=== PATIENT | male | born 1985 | race African-American/Black ===

== ENCOUNTER 2017-09-01 22:03 | Emergency (ER) | payer OTHER ==
[~2017-09-01] VITALS: Ht 175.3 cm; Wt 66.0 kg
[~2017-09-01 22:03] MED LIST: PERC5TAB12 PO
[2017-09-01 22:18] VITALS: BP 109/67; PULSE 59; RESP 18; TEMP 97.7; O2SAT 100
--- NOTE | 2017-09-01 22:56 | PD ---
HPI Chief Complaint: Laceration/Skin Injury Time Seen by Provider: 22:50 Travel History International Travel<30 days: No Contact w/Intl Traveler<30days: No Traveled to known affect area: No History of Present Illness HPI 32-year-old male presents for evaluation of a laceration to the lateral right thumb. It was sustained at work when he was lifting a bag and a piece of glass cut his finger. He has some minor pain at the site of laceration with associated bleeding. Denies any numbness or tingling or weakness, last tetanus vaccination unknown. No other complaints. [facility] Past Medical History Medical History: Denies Significant Hx Tetanus Vaccination: Unknown Past Surgical History Surgical History: No Previous Surgery Social History Alcohol Use: No Tobacco Use: Yes Substance Use: No Allergies-Medications (Allergen,Severity, Reaction): Coded Allergies: No Known Allergies (Verified , 08/27/14) Reported Meds & Prescriptions Reported Meds & Active Scripts Active No Active Prescriptions or Reported Medications Review of Systems Musculoskeletal: Positive: Pain Skin: Positive Other (Laceration, bleeding) Neurologic: No: Paresthesia Physical Exam Narrative GENERAL: Well-nourished male in no acute distress SKIN: Warm and dry. 1 cm lacerations of the lateral aspect of the right thumb. MUSCULOSKELETAL: No obvious deformities. No clubbing. No cyanosis. No edema. Skin as noted above. Distal sensation, capillary refill intact. Full range of motion right thumb. Data Data Last Documented VS Vital Signs Date Time Temp Pulse Resp B/P (MAP) Pulse Ox O2 Delivery O2 Flow Rate FiO2 09/01/17 22:18 97.7 59 18 109/67 (81) 100 Orders Orders Tetanus/Diphtheria Tox Adult (Tetanus/Di (09/01/17 23:00) Lidocaine 1% Inj (Xylocaine 1% Inj) (09/01/17 23:00) Finger (Sle3lra) (09/01/17 ) Splint Or Brace Apply/Monitor (09/01/17 23:51) Ed Discharge Order (09/02/17 00:16) MDM Medical Decision Making Medical Screen Exam Complete: Yes Emergency Medical Condition: Yes Medical Record Reviewed: Yes Differential Diagnosis Laceration, open fracture, foreign body Narrative Course Tetanus status updated, x-ray ordered, laceration repaired with sutures, he verbally consents. X-ray imaging reveals no acute abnormality's. The patient will be discharged with [facility] finger splint. Procedures Procedure Narrative LACERATION LOCATION: Right thumb LENGTH: 1 cm NUMBER OF STITCHES/ARTHUR: 3 REPAIR: The area of the laceration was prepped with Betadine and sterilely draped. The laceration was infiltrated with 1% lidocaine. The wound was copiously irrigated and explored without evidence of foreign body, tendon injury or neurovascular injury. The wound was closed using 5-0 nylon simple interrupted this was a single layer repair. A sterile dressing was applied. The patient was advised to keep the dressing clean and dry. Patient tolerated the procedure well. Diagnosis Primary Impression: Finger laceration Additional Instructions: Wash the wound daily with soap and water and apply antibiotic cream. Minimize use of right thumb to prevent wound dehiscence, use the finger splint in this endeavor. Return in approximately 14 days for suture removal. Med/Other Pt SpecificInfo: Wound Care, Orthopedic Instructions Scripts No Active Prescriptions or Reported Meds Disposition: 01 DISCHARGE HOME Condition: Stable Juan Alexander Sep 01, 2017 22:56
[2017-09-01] MEDS ORDERED: TETANUS/DIPHTHERIA TOXOID ADULT 0.5 ML VIAL IM ONE (23:00)
[2017-09-01] MEDS ORDERED: LIDOCAINE HCL 1% 30 ML VIAL INFIL ONE (23:00)
--- NOTE | 2017-09-01 23:54 | RADRPT ---
EXAM DATE/TIME: 09/01/2017 23:08 [facility] COMPARISON: No previous studies available for comparison. INDICATIONS : Laceration to anterior portion of palm at 1st finger. MEDICAL HISTORY : None. SURGICAL HISTORY : None. ENCOUNTER: Initial ACUITY: 1 day PAIN SCORE: 4/10 LOCATION: Right thumb FINDINGS: Examination of the first digit of the right hand demonstrates no evidence of fracture or dislocation. No radiopaque foreign bodies are seen. The soft tissues are intact. No radiopaque foreign bodies. CONCLUSION: The osseous structures of the 1st digit are intact. Brayan Mancia MD on September 01, 2017 at 23:52 Board Certified Radiologist. This report was verified electronically.
== END 2017-09-02 00:46 | disposition home or self-care (01) ==
LOC: NEPD 22:03
DX: S61.011A Laceration without foreign body of right thumb without damage to nail, initial encounter (principal); W25.XXXA Contact with sharp glass, initial encounter; Y93.89 Activity, other specified; Z23 Encounter for immunization
CPT/HCPCS: 12001; 73140; 90471; 90714

== ENCOUNTER 2017-09-22 00:24 | Emergency (ER) | payer OTHER ==
[2017-09-22 00:49] VITALS: BP 116/69; PULSE 72; RESP 16; TEMP 98; O2SAT 100
--- NOTE | 2017-09-22 01:10 | PD ---
HPI Chief Complaint: Wound/Suture/Staple Re-Check Time Seen by Provider: 01:01 Travel History International Travel<30 days: No Contact w/Intl Traveler<30days: No Traveled to known affect area: No History of Present Illness HPI Patient is a 32-year-old male presenting to the emergency room to have stitches removed from his right first finger. He has no complaints, no signs and symptoms of infection. He denies any significant pain. Symptom onset was approximately 3 weeks ago, symptoms have resolved. [facility], [facility] Past Medical History Medical History: Denies Significant Hx Diminished Hearing: No Past Surgical History Surgical History: No Previous Surgery Social History Alcohol Use: No Tobacco Use: Yes Substance Use: No Allergies-Medications (Allergen,Severity, Reaction): Coded Allergies: No Known Allergies (Verified Adverse Reaction, Unknown, 09/22/17) Reported Meds & Prescriptions Reported Meds & Active Scripts Active No Active Prescriptions or Reported Medications Review of Systems Except as stated in HPI: all other systems reviewed are Neg Skin: Positive Other Physical Exam Narrative GENERAL: Well-developed, well-nourished, alert male. Presenting in no acute distress. SKIN: Warm and dry. Well-healed, well approximated laceration to right first finger, stitches are intact, no erythema, induration, warmth or exudate noted. HEAD: Normocephalic. EYES: No scleral icterus. No injection or drainage. NECK: Supple, trachea midline. No JVD or lymphadenopathy. CARDIOVASCULAR: Regular rate and rhythm without murmurs, gallops, or rubs. RESPIRATORY: Breath sounds equal bilaterally. No accessory muscle use. GASTROINTESTINAL: Abdomen soft, non-tender, nondistended. MUSCULOSKELETAL: No cyanosis, or edema. BACK: Nontender without obvious deformity. No CVA tenderness. Data Data Last Documented VS Vital Signs Date Time Temp Pulse Resp B/P (MAP) Pulse Ox O2 Delivery O2 Flow Rate FiO2 09/22/17 00:49 98.0 72 16 116/69 (85) 100 Orders Orders Ed Discharge Order (09/22/17 01:07) [facility] Medical Decision Making Medical Screen Exam Complete: Yes Emergency Medical Condition: Yes Medical Record Reviewed: Yes Interpretation(s) Vital Signs Date Time Temp Pulse Resp B/P (MAP) Pulse Ox O2 Delivery O2 Flow Rate FiO2 09/22/17 00:49 98.0 72 16 116/69 (85) 100 Differential Diagnosis Normal healing versus wound infection versus dehiscence versus other Narrative Course Patient is a 32-year-old male presenting to the emergency to have stitches removed. Wound is well-healed. Patient's vital signs are stable. 5 stitches were removed easily. Patient stable for discharge. Diagnosis Primary Impression: Visit for suture removal Referrals: Primary Care Physician Patient Instructions: General Instructions Departure Forms: Tests/Procedures, Work Release Enter return to work date: Sep 23, 2017 Special Instructions: Patient may return to work with no restrictions Additional Instructions: Follow-up with your primary doctor Continue range of motion exercises Return to emergency department for any new or worsening symptoms Med/Other Pt SpecificInfo: No Meds Exist/No RX given Scripts No Active Prescriptions or Reported Meds Disposition: 01 DISCHARGE HOME Condition: Stable Mariana Hansen Sep 22, 2017 01:10
== END 2017-09-22 01:23 | disposition home or self-care (01) ==
LOC: NEPD 00:24
DX: S61.011D Laceration without foreign body of right thumb without damage to nail, subsequent encounter (principal); X58.XXXD Exposure to other specified factors, subsequent encounter; Z48.02 Encounter for removal of sutures
CPT/HCPCS: 99281